=== PATIENT | male | born 1930 | race Caucasian/White ===

== ENCOUNTER 2017-01-21 09:12 | Emergency (ER) | payer BC ==
[~2017-01-21 09:12] MED LIST: ALEVE220 MG PO; ASA5GR PO; ASAB PO; ATEN25 PO; BUDEPRION XL150 MG PO; CENTRUM TAB1 TAB PO; CRESTOR10 PO; DURA75 TOP; LOP25 PO; LORTAB10 PO; METOPROLOL PO; MOBIC7.5 PO; MSCONT15 PO; NEUR100 PO; NORV5 PO; PLAVIX PO; PRIN5 PO; REST15 PO; SENOKOTS PO; SIMVASTATIN PO; ZOCOR40 PO
[2017-01-21 09:24] LABS: BASOPHILS 0.2 %; BASOPHILS ABSOLUTE 0.02 10/3/uL (0.0-0.16); EOSINOPHILS 3.2 %; EOSINOPHILS ABSOLUTE 0.28 10/3/uL (0.0-0.53); HEMOGLOBIN 11.2 g/dL (13.6-17.8); IMMATURE GRANULOCYTES 0.2 %; IMMATURE GRANULOCYTES ABSOLUTE 0.02 10/3/uL (0.0-0.11); LYMPHOCYTES 16.1 %; MEAN CORPUS HGB CONC 33.2 g/dL (32.0-36.0); MEAN CORPUSCULAR HEMOGLOB 28.6 pg (26.0-34.0); MEAN PLATELET VOLUME 9.4 fL (9.2-13.0); MONOCYTES 12.4 %; MONOCYTES ABSOLUTE 1.08 10/3/uL (0.21-1.20); NEUTROPHILS 67.9 %; NEUTROPHILS ABSOLUTE 5.92 10/3/uL (2.02-8.40); PLATELET COUNT 162 10/3/uL (150-400); RBC DISTRIBUTION WIDTH 13.4 % (12.0-16.0); RED CELL COUNT 3.92 10/6/uL (4.7-6.1); WHITE BLOOD CELLS 8.7 10/3/uL (4.5-10.5)
[2017-01-21 09:26] LABS: ER CBC TAT 0 Hrs 05 Mins; HEMATOCRIT 33.7 % (40.0-51.0); MANUAL DIFF NO %
[2017-01-21 09:32] LABS: INTERNATIONAL NORMAL RATI 1.1 UNITS (-); PARTIAL THROMBO TIME 33.1 SEC (22.5-37.2); PROTIME (NOT ORD) 14.4 SEC (12.0-14.5)
[2017-01-21 09:42] LABS: BUN (BLOOD UREA NITROGEN) 28 MG/DL (6-23); CALCIUM, SERUM 8.8 MG/DL (8.5-10.4); CHEST PAIN PROFILE TAT 0 Hrs 23 Mins; CHLORIDE, SERUM 104 MMOL/L (96-112); CO2 (CARBON DIOXIDE) 29 MMOL/L (24-34); CREATININE 1.58 MG/DL (0.70-1.30); GFR AFRICAN AMERICAN 45 ML/MIN (>=60); GFR NON AFRICAN AMERICAN 38 ML/MIN (>=60); GLUCOSE, SERUM 81 MG/DL (60-99); POTASSIUM, SERUM 4.1 MMOL/L (3.5-5.3); SODIUM, SERUM 138 MMOL/L (135-148); TROPONIN I <0.02 NG/ML (<0.05)
[2017-01-21 09:51] LABS: INFLUENZA A SCREEN NEGATIVE (NEGATIVE); INFLUENZA B SCREEN NEGATIVE (NEGATIVE)
[2017-01-21 10:11] LABS: LACTATE 0.9 MMOL/L (0.3-2.4)
[2017-05-13] MEDS ORDERED: MIRALAX POWDER1 PKT PO (09:00)
[2017-05-14] MEDS ORDERED: PEP20 (12:04)
[2017-05-14] MEDS ORDERED: NITROQUICK0.4 MG SL (12:05)
[2017-05-14] MEDS ORDERED: IMDUR30 PO (12:08)
== END 2017-01-21 11:39 | disposition home or self-care (01) ==
LOC: ER 09:12
PROVIDERS: Emergency Medicine
DX: B34.9 Viral infection, unspecified (principal); I12.9 Hypertensive chronic kidney disease with stage 1 through stage 4 chronic kidney disease, or unspecified chronic kidney disease; N18.9 Chronic kidney disease, unspecified; I25.10 Atherosclerotic heart disease of native coronary artery without angina pectoris; I48.92 Unspecified atrial flutter; F03.90 Unspecified dementia, unspecified severity, without behavioral disturbance, psychotic disturbance, mood disturbance, and anxiety; Z95.1 Presence of aortocoronary bypass graft; Z95.0 Presence of cardiac pacemaker; Z87.891 Personal history of nicotine dependence; Z88.0 Allergy status to penicillin; Z79.82 Long term (current) use of aspirin; Z79.899 Other long term (current) drug therapy
CPT/HCPCS: 71010; 80048; 83605; 83735; 83880; 84484; 85025; 85610; 85730; 87040; 87804; 93005; 99285

== ENCOUNTER 2017-01-27 21:16 | Inpatient (IN) | payer BC ==
--- NOTE | ~2017-01-27 | HP ---
History And Physical [place] [address] [facility] [place]. [address] NAME: OLGA LONG WINTER : [birth year] STATUS : [facility]M [facility]#: [id number] AGE: 86 ADM/REG DATE : 01/28/17 MR#: [id number] REPORT SERV DATE: 01/28/17 DICTATED BY: FAISAL PORTILLO DATE: 01/28/17 REPORT STATUS : Draft TRANSCRIBED BY: MODL DATE: 01/28/17 DATE OF ADMISSION: 01/28/2017 CHIEF COMPLAINT: An 86-year-old male presenting with shortness of breath and cough. HISTORY OF PRESENTING ILLNESS: The patient's history was obtained through careful interview with the patient and , coupled with review of [facility] and [facility] medical records. The patient first became ill about nine days ago with cough and shortness of breath. He had Z-Alek called in for him earlier this week, but despite this medication, he has had no improvement in his symptoms. He describes cough, productive of yellow sputum. He describes shortness of breath characterized by dyspnea on exertion on the evening of admission, he "felt so bad" that he felt he could not stay at home safely. He is weak, been lying in bed a lot. He is lightheaded, but no confusion. He developed subjective fevers and chills and a measured temperature up to 100.9. He describes midchest discomfort, mostly in the left side and sharp quality, 8/10 in severity, exacerbated by coughing and breathing. He has had nausea, but no vomiting. He has had some slight nasal discharge with a bloody yellow substance. No diarrhea for about three nights. He has had night sweats and he states "I drenched the bed." REVIEW OF SYSTEMS: Otherwise, a 14-point review of systems was obtained and was negative. PAST MEDICAL HISTORY: 1. Coronary artery disease, status post CABG. 2. Pacemaker placement for sick sinus syndrome, followed by Dr. Patel. 3. Ventricular tachycardia. 4. Chronic kidney disease. 5. Chronic back pain. 6. Hypertension. 7. Pulmonary nodule, but negative PET scan in November 2015. 8. Chronic kidney disease, stage III. Baseline creatinine of 1.4 to 1.7. 9. Rib fractures. 10.Nephrolithiasis. 11.COPD. 12.Benign prostatic hypertrophy. PAST SURGICAL HISTORY: 1. CABG in 2000. History And Physical [address] [address] NAME: OLGA LONG : [birth year] STATUS : ADM IN PAT#: [id number] AGE: 86 ADM/REG DATE : 01/28/17 MR#: [id number] REPORT SERV DATE: 01/28/17 DICTATED BY: FAISAL PORTILLO DATE: 01/28/17 REPORT STATUS : Draft TRANSCRIBED BY: ALLI DATE: 01/28/17 2. Pacemaker. 3. Left carotid endarterectomy with stent placement. 4. Multiple skin cancers. 5. Back surgery. 6. Appendectomy. ALLERGIES: PENICILLIN. SOCIAL HISTORY: Quit smoking in his 50s. He does drink occasional alcohol. He has a history of being a , but now he is remarried to his . He has four children, retired project development engineer. He lives in independent living [facility]. FAMILY HISTORY: Coronary artery disease. Father with cancer and diabetes. CURRENT MEDICATIONS: Include aspirin 325 mg p.o. daily; Z-Alek this last week; Colace 200 mg every morning, 100 mg at bedtime; fentanyl patch; Neurontin 200 mg at bedtime, 100 mg in the morning; metoprolol 12.5 mg p.o. b.i.d.; MS Contin 15 mg p.o. b.i.d.; Senokot; Zocor 40 mg p.o. daily; and Flomax 0.4 mg p.o. daily. PHYSICAL EXAMINATION: VITAL SIGNS: Temperature 99.7, pulse 59, blood pressure 139/67, respiratory rate 20, and O2 saturation 93% on room air. GENERAL: An ill-appearing male, in no acute distress. It is very uncomfortable. HEENT: Pupils equal, round, and reactive to light. No conjunctival pallor. No scleral icterus. Nares are patent. Oropharynx is clear of obstruction. Dry mucous membranes. NECK: Trachea midline. No thyromegaly. LYMPH: No cervical lymphadenopathy. No supraclavicular lymphadenopathy. RESPIRATORY: The patient has scattered rhonchi on examination, mild scattered wheezes. He has diminished breath sounds at the base of lungs with focal egophony at the bases. Very labored respiratory effort. CARDIOVASCULAR: Bradycardic, regular rhythm, paced on the monitor. No murmurs, rubs, or gallops. No extremity edema is appreciated. ABDOMEN: Soft, nontender, nondistended. Normal bowel sounds auscultated throughout. No hepatosplenomegaly. DERMATOLOGICAL: Warm and dry extremities. No pallor. No cyanosis. PSYCHIATRIC: Normal affect. Good mood. Alert and oriented x3. LABORATORY DATA: White blood cell count 11, hemoglobin 11, hematocrit 34, platelets 224. Sodium 136, potassium 4.5, chloride 101, bicarbonate 27, BUN 23, creatinine 1.53, glucose 110, troponin negative. Liver enzymes within normal limits. STUDIES: 1. EKG by my own evaluation shows atrial ventricular pacing. 2. CT angiogram of the chest shows stable 1.1 cm left lung apex nodule and bilateral basilar pneumonia. ASSESSMENT AND PLAN: History And Physical [address] [address] NAME: OLGA LONG : [birth year] STATUS : [facility]#: [id number] AGE: 86 ADM/REG DATE : 01/28/17 MR#: [id number] REPORT SERV DATE: 01/28/17 DICTATED BY: FAISAL PORTILLO DATE: 01/28/17 REPORT STATUS : Draft TRANSCRIBED BY: ALLI DATE: 01/28/17 1. Community-acquired pneumonia. Check blood cultures. Place on IV Levaquin noting a penicillin allergy. Check sputum culture. The patient "failed" outpatient Z-Alek. 2. Chronic obstructive pulmonary disease. Place on DuoNeb nebulizers. 3. Chronic kidney disease, stage III. KPL/MODL Faisal Portillo M.D. / [id number] CC: MD Diego De Los Santos M.D.
--- NOTE | ~2017-01-27 | DS ---
Discharge Summary [facility] [address] [place]. [address] NAME: OLGA LONG : [birth year] STATUS : DIS IN PAT#: [id number] AGE: 86 ADM/REG DATE : 01/28/17 MR#: [id number] REPORT SERV DATE: 01/31/17 DICTATED BY: AZEB BLANCA DATE: 01/30/17 REPORT STATUS : Draft TRANSCRIBED BY: MODL DATE: 01/30/17 ADMISSION DATE: 01/28/2017 DISCHARGE DATE: 01/30/2017 HISTORY: The patient is an 86-year-old male with a history of hypertension, COPD, and CKD, who presented to the hospital with a complaint of shortness of breath and cough. For further details, please refer to H and P dictated by Dr. Bharat Hilario on 01/28/2017. HOSPITAL COURSE: Upon presentation to the hospital, the patient was diagnosed with community acquired pneumonia, admitted under Hospitalist Service for further management. Given his history of CKD stage 3, the patient was started on Levaquin, which was renally dosed. The patient has responded well to therapy with significant improvement in his coughing and also significant improvement in his shortness of breath. The patient is saturating appropriately on room air. His white count has trended down and is currently normal. The patient has remained afebrile for greater than 48 hours. Also this morning, upon evaluation, the patient had red, tender erythematous great toe on the right lower extremity concerning for gout. Given his history of CKD, colchicine and NSAIDs are contraindicated. The patient will be placed on prednisone 40 mg p.o. daily. The patient has been instructed to follow up with his primary care physician. Plan has been discussed with the patient who voices understanding and is agreeable with this plan. Of note, the patient's was at bedside, had a lot of questions; all questions were answered. I have spent a significant amount of time providing counseling for the patient about 20 to 30 minutes. DISCHARGE DIAGNOSES: 1. Community-acquired pneumonia. 2. Leukocytosis. 3. Gout. 4. Acute kidney injury. 5. Chronic kidney disease, stage 3. 6. Chronic obstructive pulmonary disease. 7. Hypertension. DISCHARGE PHYSICAL EXAMINATION: VITAL SIGNS: 118/56 with a pulse of 64, respirations 18, and O2 saturations 91% on room air. GENERAL: The patient is lying in bed, in no acute distress. Speaking in full sentences with normal upper respiratory effort. HEENT: Normocephalic and atraumatic. Extraocular motors intact. Moist oral mucosa. Anicteric sclerae. No conjunctival injection. NECK: Trachea midline and symmetric. No thyromegaly noted. No JVD present. CHEST: Nontender to palpation. No scars appreciated. CARDIOVASCULAR: Regular rate and rhythm. S1, S2. No murmurs, rubs, or gallops. LUNGS: Clear to auscultation bilaterally. Normal respiratory effort with equal chest expansion. No rhonchi, rales, or wheezing. ABDOMEN: Positive bowel sounds. Nontender. Nondistended. No masses are palpated. EXTREMITIES: Lower extremity, no cyanosis, no clubbing, no edema. Right great toe appears erythema. Medial aspect of the right toe appears erythematous and tender to touch. Discharge Summary [address] [address] NAME: OLGA LONG : [birth year] STATUS : DIS IN PAT#: [id number] AGE: 86 ADM/REG DATE : 01/28/17 MR#: [id number] REPORT SERV DATE: 01/31/17 DICTATED BY: AZEB BLANCA DATE: 01/30/17 REPORT STATUS : Draft TRANSCRIBED BY: ALLI DATE: 01/30/17 DISCHARGE MEDICATIONS: 1. Aspirin 325 mg p.o. daily. 2. Docusate 200 mg p.o. every morning and docusate 100 mg p.o. at bedtime. 3. Fentanyl patch, one patch topically q.72 hours. 4. Gabapentin 200 mg at bedtime and gabapentin 100 mg p.o. every morning. 5. Morphine 15 mg p.o. twice a day. 6. Metoprolol tartrate 12.5 mg p.o. twice a day. 7. Senna 25.8 mg p.o. twice a day. 8. Simvastatin 40 mg p.o. at bedtime. 9. Tamsulosin 0.4 mg p.o. every morning. 10.Levaquin 750 mg p.o. q.48 hours. 11.Prednisone 40 mg p.o. daily for 5 days. IMAGING STUDIES: CT/CTA of chest. 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 No PE, significant LAD, and circumflex arthrosclerotic changes with evidence of prior pacemaker BiPAP. DISPOSITION: The patient will be discharged home to follow with his primary care physician. ACTIVITY: As tolerated. DIET: Regular diet. Greater than 30 minutes was spent on providing counseling on coordinating discharge, dictation of note, writing prescription, and medication reconciliation. JOE/ALLI Azeb Blanca MD / [id number] CC: MD Azeb De Los Santos M.D.
[2017-01-27 22:01] LABS: BASOPHILS 0.2 %; BASOPHILS ABSOLUTE 0.02 10/3/uL (0.0-0.16); EOSINOPHILS 1.4 %; EOSINOPHILS ABSOLUTE 0.16 10/3/uL (0.0-0.53); HEMATOCRIT 33.9 % (40.0-51.0); HEMOGLOBIN 11.1 g/dL (13.6-17.8); IMMATURE GRANULOCYTES 0.4 %; IMMATURE GRANULOCYTES ABSOLUTE 0.05 10/3/uL (0.0-0.11); LYMPHOCYTES 12.1 %; LYMPHOCYTES ABSOLUTE 1.35 10/3/uL (0.67-4.30); MEAN CORPUS HGB CONC 32.7 g/dL (32.0-36.0); MEAN CORPUSCULAR HEMOGLOB 28.1 pg (26.0-34.0); MEAN CORPUSCULAR VOLUME 85.8 fL (80-100); MEAN PLATELET VOLUME 9.1 fL (9.2-13.0); MONOCYTES 12.5 %; MONOCYTES ABSOLUTE 1.39 10/3/uL (0.21-1.20); NEUTROPHILS 73.4 %; NEUTROPHILS ABSOLUTE 8.15 10/3/uL (2.02-8.40); RED CELL COUNT 3.95 10/6/uL (4.7-6.1); WHITE BLOOD CELLS 11.1 10/3/uL (4.5-10.5)
[2017-01-27 22:02] LABS: MANUAL DIFF NO %; PLATELET COUNT 224 10/3/uL (150-400)
[2017-01-27 22:15] LABS: A/G RATIO 0.8 (0.7-1.9); ALBUMIN 3.3 G/DL (3.5-5.0); ALKALINE PHOSPHATASE 95 U/L (45-117); BUN (BLOOD UREA NITROGEN) 23 MG/DL (6-23); CALCIUM, SERUM 8.9 MG/DL (8.5-10.4); CHLORIDE, SERUM 101 MMOL/L (96-112); CO2 (CARBON DIOXIDE) 27 MMOL/L (24-34); CREATININE 1.53 MG/DL (0.70-1.30); GFR AFRICAN AMERICAN 46 ML/MIN (>=60); GFR NON AFRICAN AMERICAN 40 ML/MIN (>=60); GLOBULIN 3.9 G/DL (2.5-4.1); GLUCOSE, SERUM 110 MG/DL (60-99); POTASSIUM, SERUM 4.5 MMOL/L (3.5-5.3); SGOT(AST) 17 U/L (5-40); SGPT(ALT) 16 U/L (5-65); SODIUM, SERUM 136 MMOL/L (135-148); TOTAL BILIRUBIN 0.5 MG/DL (0-1.2); TOTAL PROTEIN 7.2 G/DL (6.0-8.5)
[2017-01-27 22:47] LABS: ASCORBIC ACID (UR NOT ORDER) 40 (NEG); BILIRUBIN, URINE NEGATIVE (NEG); ER URINALYSIS TAT 0 Hrs 11 Mins; KETONE, URINE TRACE MG/DL (NEG); LEUKOCYTE ESTERASE(NOT OR TRACE (NEG); NITRITE (URINE) NEG (NEG); WBC (NOT ORDERED) (RFLEX) 3 (0-5)
[2017-01-28 02:23] LABS: INTERNATIONAL NORMAL RATI 1.2 UNITS (-); PARTIAL THROMBO TIME 37.1 SEC (22.5-37.2); PROTIME (NOT ORD) 14.8 SEC (12.0-14.5)
[2017-01-28 02:34] LABS: LACTATE 1.2 MMOL/L (0.3-2.4)
[2017-01-28] MEDS ORDERED: NEUR100 PO ×2 (04:19)
[2017-01-28] MEDS ORDERED: ZOCOR40 PO (04:20)
[2017-01-28] MEDS ORDERED: Z-PAK PO (04:20)
[2017-01-28] MEDS ORDERED: FLOMAX4 PO (04:21)
[2017-01-28] MEDS ORDERED: MSCONTIN PO (04:21)
[2017-01-28] MEDS ORDERED: LOP25 PO (04:24)
[2017-01-28] MEDS ORDERED: ASABAYER PO (04:24)
[2017-01-28] MEDS ORDERED: DSS PO ×2 (04:25)
[2017-01-28] MEDS ORDERED: SENTAB PO (04:25)
[2017-01-28] MEDS ORDERED: NORCO1 TAB PO (04:29)
[2017-01-28 12:01] LABS: BASOPHILS 0.2 %; BASOPHILS ABSOLUTE 0.02 10/3/uL (0.0-0.16); EOSINOPHILS 0.2 %; EOSINOPHILS ABSOLUTE 0.02 10/3/uL (0.0-0.53); HEMOGLOBIN 9.8 g/dL (13.6-17.8); IMMATURE GRANULOCYTES 0.4 %; IMMATURE GRANULOCYTES ABSOLUTE 0.04 10/3/uL (0.0-0.11); LYMPHOCYTES 10.1 %; MEAN CORPUS HGB CONC 32.9 g/dL (32.0-36.0); MEAN CORPUSCULAR HEMOGLOB 28.6 pg (26.0-34.0); MEAN CORPUSCULAR VOLUME 86.9 fL (80-100); MEAN PLATELET VOLUME 9.2 fL (9.2-13.0); MONOCYTES ABSOLUTE 1.29 10/3/uL (0.21-1.20); NEUTROPHILS 76.1 %; NEUTROPHILS ABSOLUTE 7.54 10/3/uL (2.02-8.40); PLATELET COUNT 201 10/3/uL (150-400); RBC DISTRIBUTION WIDTH 12.9 % (12.0-16.0); RED CELL COUNT 3.43 10/6/uL (4.7-6.1); WHITE BLOOD CELLS 9.9 10/3/uL (4.5-10.5)
[2017-01-28 12:02] LABS: HEMATOCRIT 29.8 % (40.0-51.0); MANUAL DIFF NO %
[2017-01-28 12:08] LABS: INTERNATIONAL NORMAL RATI 1.4 UNITS (-); PROTIME (NOT ORD) 16.6 SEC (12.0-14.5)
[2017-01-28 12:33] LABS: A/G RATIO 0.8 (0.7-1.9); ALBUMIN 2.7 G/DL (3.5-5.0); BUN (BLOOD UREA NITROGEN) 23 MG/DL (6-23); CALCIUM, SERUM 8.2 MG/DL (8.5-10.4); CHLORIDE, SERUM 102 MMOL/L (96-112); CO2 (CARBON DIOXIDE) 24 MMOL/L (24-34); CREATININE 1.46 MG/DL (0.70-1.30); GFR AFRICAN AMERICAN 49 ML/MIN (>=60); GFR NON AFRICAN AMERICAN 42 ML/MIN (>=60); GLOBULIN 3.4 G/DL (2.5-4.1); GLUCOSE, SERUM 96 MG/DL (60-99); POTASSIUM, SERUM 4.1 MMOL/L (3.5-5.3); SGOT(AST) 14 U/L (5-40); SGPT(ALT) 11 U/L (5-65); SODIUM, SERUM 135 MMOL/L (135-148); TOTAL BILIRUBIN 0.4 MG/DL (0-1.2); TOTAL PROTEIN 6.1 G/DL (6.0-8.5); TROPONIN I <0.02 NG/ML (<0.05)
[2017-01-28 12:34] LABS: ALKALINE PHOSPHATASE 78 U/L (45-117); PHOSPHORUS, SERUM 2.6 MG/DL (2.5-4.5)
[2017-01-28 13:16] LABS: PROCALCITONIN 0.18 ng/mL (<0.5)
[2017-01-29 06:34] LABS: BASOPHILS 0.2 %; BASOPHILS ABSOLUTE 0.02 10/3/uL (0.0-0.16); EOSINOPHILS 1.6 %; EOSINOPHILS ABSOLUTE 0.14 10/3/uL (0.0-0.53); HEMOGLOBIN 9.5 g/dL (13.6-17.8); IMMATURE GRANULOCYTES 0.3 %; IMMATURE GRANULOCYTES ABSOLUTE 0.03 10/3/uL (0.0-0.11); LYMPHOCYTES 13.6 %; LYMPHOCYTES ABSOLUTE 1.22 10/3/uL (0.67-4.30); MEAN CORPUS HGB CONC 32.8 g/dL (32.0-36.0); MEAN CORPUSCULAR HEMOGLOB 28.4 pg (26.0-34.0); MEAN CORPUSCULAR VOLUME 86.6 fL (80-100); MONOCYTES 12.7 %; MONOCYTES ABSOLUTE 1.14 10/3/uL (0.21-1.20); NEUTROPHILS 71.6 %; PLATELET COUNT 201 10/3/uL (150-400); RED CELL COUNT 3.35 10/6/uL (4.7-6.1)
[2017-01-29 06:35] LABS: MANUAL DIFF NO %
[2017-01-29 06:47] LABS: A/G RATIO 0.8 (0.7-1.9); ALBUMIN 2.6 G/DL (3.5-5.0); ALKALINE PHOSPHATASE 76 U/L (45-117); BUN (BLOOD UREA NITROGEN) 22 MG/DL (6-23); CALCIUM, SERUM 8.2 MG/DL (8.5-10.4); CHLORIDE, SERUM 108 MMOL/L (96-112); CO2 (CARBON DIOXIDE) 25 MMOL/L (24-34); CREATININE 1.54 MG/DL (0.70-1.30); GFR AFRICAN AMERICAN 46 ML/MIN (>=60); GFR NON AFRICAN AMERICAN 40 ML/MIN (>=60); GLOBULIN 3.1 G/DL (2.5-4.1); GLUCOSE, SERUM 99 MG/DL (60-99); POTASSIUM, SERUM 4.3 MMOL/L (3.5-5.3); SGOT(AST) 12 U/L (5-40); SGPT(ALT) 13 U/L (5-65); SODIUM, SERUM 140 MMOL/L (135-148); TOTAL BILIRUBIN 0.3 MG/DL (0-1.2); TOTAL PROTEIN 5.7 G/DL (6.0-8.5)
[2017-01-30 04:29] LABS: BASOPHILS 0.2 %; BASOPHILS ABSOLUTE 0.02 10/3/uL (0.0-0.16); EOSINOPHILS 2.9 %; EOSINOPHILS ABSOLUTE 0.25 10/3/uL (0.0-0.53); HEMATOCRIT 26.4 % (40.0-51.0); HEMOGLOBIN 8.8 g/dL (13.6-17.8); IMMATURE GRANULOCYTES 0.5 %; IMMATURE GRANULOCYTES ABSOLUTE 0.04 10/3/uL (0.0-0.11); LYMPHOCYTES 16.1 %; LYMPHOCYTES ABSOLUTE 1.37 10/3/uL (0.67-4.30); MEAN CORPUS HGB CONC 33.3 g/dL (32.0-36.0); MEAN CORPUSCULAR HEMOGLOB 28.7 pg (26.0-34.0); MEAN PLATELET VOLUME 9.1 fL (9.2-13.0); MONOCYTES 16.5 %; NEUTROPHILS 63.8 %; NEUTROPHILS ABSOLUTE 5.43 10/3/uL (2.02-8.40); PLATELET COUNT 203 10/3/uL (150-400); RBC DISTRIBUTION WIDTH 13.4 % (12.0-16.0); RED CELL COUNT 3.07 10/6/uL (4.7-6.1); WHITE BLOOD CELLS 8.5 10/3/uL (4.5-10.5)
[2017-01-30 04:31] LABS: MANUAL DIFF NO %
[2017-01-30 04:43] LABS: A/G RATIO 0.8 (0.7-1.9); ALBUMIN 2.5 G/DL (3.5-5.0); ALKALINE PHOSPHATASE 71 U/L (45-117); BUN (BLOOD UREA NITROGEN) 24 MG/DL (6-23); CHLORIDE, SERUM 109 MMOL/L (96-112); CO2 (CARBON DIOXIDE) 22 MMOL/L (24-34); CREATININE 1.48 MG/DL (0.70-1.30); GFR AFRICAN AMERICAN 48 ML/MIN (>=60); GFR NON AFRICAN AMERICAN 42 ML/MIN (>=60); GLUCOSE, SERUM 88 MG/DL (60-99); POTASSIUM, SERUM 4.3 MMOL/L (3.5-5.3); SGOT(AST) 15 U/L (5-40); SGPT(ALT) 13 U/L (5-65); SODIUM, SERUM 139 MMOL/L (135-148); TOTAL BILIRUBIN 0.3 MG/DL (0-1.2); TOTAL PROTEIN 5.5 G/DL (6.0-8.5)
[2017-01-30] MEDS ORDERED: LEVAQUIN750 MG (11:24)
[2017-01-30] MEDS ORDERED: P10 PO (11:25)
[2017-05-13] MEDS ORDERED: MIRALAX POWDER1 PKT PO (09:00)
[2017-05-14] MEDS ORDERED: PEP20 (12:04)
[2017-05-14] MEDS ORDERED: NITROQUICK0.4 MG SL (12:05)
[2017-05-14] MEDS ORDERED: IMDUR30 PO (12:08)
== END 2017-01-30 12:35 | disposition home or self-care (01) | DRG 190 ==
LOC: ER 21:16 → 7NO 01-28 03:54
PROVIDERS: Emergency Medicine; Hospitalist; Nurse Practitioner
DX: J44.0 Chronic obstructive pulmonary disease with (acute) lower respiratory infection (principal); J18.9 Pneumonia, unspecified organism; N17.9 Acute kidney failure, unspecified; N18.3 Chronic kidney disease, stage 3 (moderate); Z95.1 Presence of aortocoronary bypass graft; M10.9 Gout, unspecified; I12.9 Hypertensive chronic kidney disease with stage 1 through stage 4 chronic kidney disease, or unspecified chronic kidney disease; I25.10 Atherosclerotic heart disease of native coronary artery without angina pectoris; N40.0 Benign prostatic hyperplasia without lower urinary tract symptoms; M54.9 Dorsalgia, unspecified; Z79.82 Long term (current) use of aspirin; Z87.442 Personal history of urinary calculi; Z87.891 Personal history of nicotine dependence; Z82.49 Family history of ischemic heart disease and other diseases of the circulatory system; Z83.3 Family history of diabetes mellitus; Z88.0 Allergy status to penicillin
CPT/HCPCS: 71010; 71020; 71275; 80053; 81001; 83605; 83735; 83880; 84100; 84145; 84443; 84484; 85025; 85610; 85730; 87040; 87070; 87205; 87449; 93005; 94640; 99285; A9270-GY; G0378; J1956; J2405; Q9967